=== PATIENT | female | born 1985 | race Caucasian/White ===

== ENCOUNTER 2017-12-29 07:43 | Emergency (ER) | payer BC, MEDICAID ==
[2017-12-29 08:04] VITALS: BP 124/73
--- NOTE | 2017-12-29 08:06 | EDM.PDOC ---
ED HPI GENERAL MEDICAL PROBLEM - General Chief Complaint: ENT Problem Stated Complaint: ear ache, dizziness Time Seen by Provider: 12/29/17 08:00 Source of Information: Reports: Patient, Old Records ([facility] chart/EMR) History Limitations: Reports: No Limitations - History of Present Illness INITIAL COMMENTS - FREE TEXT/NARRATIVE: The patient drove herself to the emergency room via private automobile for evaluation of increasing left outer ear canal pain with symptoms starting at about noon yesterday. She denies any history of injury, drainage, recent use of antipyretic medication, etc. She also had a sebaceous cyst with mild local infection about 1 week ago with some drainage at that time from her right upper chest, which has since resolved. No recent history of abdominal pain, heartburn , nausea, diarrhea, melena, gross hematochezia, or any food intolerance, including fatty foods, etc.. The patient also denies any recent cough, wheezing , dyspnea, etc.. Onset: Gradual Onset Date: 12/28/17 Onset Time: 12:00 Duration: Constant, Getting Worse Location: Reports: Face (Left EAC as above). Denies: Head, Neck, Chest, Radiates to Quality: Reports: Pressure, Sharp, Throbbing Severity: Moderate Improves with: Reports: None Worsens with: Reports: None Associated Symptoms: Reports: No Other Symptoms. 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 Denies: Allergic Rhinitis, Cataract, Glaucoma, Hard of Hearing, Otitis Media, Retinal Detachment Other HEENT History: Patient wears glasses. Skull fracture as below Cardiovascular History: Reports: Arrhythmia, Heart Murmur, Syncope, Other (See Below). Denies: Afib, Aneurysm, Blood Clots/VTE/DVT, CAD, High Cholesterol, Hypertension, LA, PVD Other Cardiovascular History: Mitral valve prolapse. PACs. Nonspecific syncopal episode on 04/08/04 secondary to postoperative anemia Respiratory History: Reports: Asthma. Denies: COPD, Intubation, Difficult, Intubation, Previous, PE, Pneumothorax Gastrointestinal History: Reports: GERD, Other (See Below). Denies: Celiac Disease, Cholelithiasis, Chronic Constipation, Chronic Diarrhea, Fecal Incontinence, Gastritis, GI Bleed, Hepatitis, Inflammatory Bowel Disease, Irritable Bowel Syndrome, Jaundice, Pancreatitis Other Gastrointestinal History: Nonspecific colitis by CT scan on 04/27/14 with no further workup Genitourinary History: Reports: STD, UTI, Recurrent, Other (See Below). 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 Elective SAB X 2 in first trimester ) LMP (Approximate): 2 Weeks (Current IUD) Musculoskeletal History: Reports: Arthritis, Back Pain, Chronic, Fracture, Neck Pain, Chronic, Osteoarthritis, Other (See Below) Other Musculoskeletal History: Right fifth metatarsal in 2010. Right ankle fracture affecting growth plate at about age 6. Skull fracture at age 3 on . Neurological History: Reports: Concussion, Head Trauma, Other (See Below). Denies: Brain Injury, Cerebral Aneurysms, CVA, Headaches, Chronic, Migraines, MS , Neuropathy, Diabetic, Neuropathy, Peripheral, Parkinson's, Seizure, TIA Other Neuro History: Skull fracture at age 3 as above Psychiatric History: Reports: Addiction, Anxiety, Depression, Psych Hospitalization(s), Other (See Below). Denies: Abuse, Victim of, ADD, ADHD, PTSD, Suicide Attempt, Suicidal Ideation Other Psychiatric History: Illicit drug use as below Endocrine/Metabolic History: Reports: None. Denies: Diabetes, Gestational, Diabetes, Type I, Diabetes, Type II, Diabetes Mellitus, Type 3c, Hypothyroidism , IDDM Hematologic History: Reports: Anemia, Other (See Below). Denies: Blood Transfusion(s), Iron Deficiency Other Hematologic History: Postoperative anemia as above with no previous blood transfusions Immunologic History: Reports: None. Denies: AIDS, HIV, SLE Oncologic (Cancer) History: Reports: Other (See Below). Denies: Basal Cell Carcinoma, Cervix, Colon, Hodgkin's Lymphoma, Leukemia, Lymphoma, Non-Hodgkin's Lymphoma, Squamous Cell Carcinoma Other Oncologic History: 2 previous histories of abnormal Pap smears however no evidence of malignancy Dermatologic History: Reports: Psoriasis, Other (See Below). Denies: Eczema Other Dermatologic History: recurrent sebaceous cysts - Infectious Disease History Infectious Disease History: Reports: Chicken Pox. Denies: C-Difficile, Measles , Meningitis, Mononucleosis, MRSA, Mumps, Pertussis (Whooping Cough), Rheumatic Fever, Rubella, Scarlet Fever, Shingles, VRE - Past Surgical History Head Surgeries/Procedures: Reports: None HEENT Surgical History: Reports: Adenoidectomy, Oral Surgery, Tonsillectomy, Other (See Below). Denies: Cataract Surgery, Eye Surgery, Laser Surgery, LASIK , Myringotomy w Tube(s), Naso-Sinus Surgery Other HEENT Surgeries/Procedures: Frenulum revision at age 13. [place] teeth extraction 4 at age 15. Tonsillectomy and adenoidectomy in 1993 Cardiovascular Surgical History: Reports: None. Denies: Varicose Respiratory Surgical History: Reports: None. Denies: Thoracentesis GI Surgical History: Denies: Appendectomy, Cholecystectomy, Colonoscopy, EGD, Hernia, Abdominal, Hernia, Inguinal, Hernia Repair/Other Female Surgical History: Reports: D&C, Dilitation & Evacuation, Other (See Below). Denies: Breast Biopsy, Hysterectomy, Oophorectomy, Salpingo- Oophorectomy, Tubal Ligation Other Female Surgeries/Procedures: Elective D&Cs 2 as above. History of excisions of recurrent Bartholincysts initially in March 2004 then April 2004 and then in 2004 Endocrine Surgical History: Reports: None. Denies: Thyroid Biopsy Neurological Surgical History: Reports: None. Denies: C-Spine, Laminectomy, Lumbar Spine, Sacral Spine, Thoracic Spine, Vertebroplasty Musculoskeletal Surgical History: Reports: Ganglion Cyst, Other (See Below). Denies: Arthroscopic Procedure, Carpal Tunnel, Joint Replacement, ORIF, Shoulder Surgery Other Musculoskeletal Surgeries/Procedures:: Right wrist ganglion cyst excision on 08/27/11 Oncologic Surgical History: Reports: None. Denies: Biopsy of Breast Dermatological Surgical History: Reports: None - Past Imaging History Past Imaging History: Reports: CAT Scan (CT scan of the abdomen and pelvis with contrast on 04/27/14), Ultrasound (OB ultrasounds) Social & Family History - Family History Cardiac: Reports: CAD, Hypertension, LA, Other (See Below) Other Cardiac Family History: Maternal grandmother and maternal uncle with MIs. Hypertension in maternal and paternal aunts Respiratory: Reports: COPD, Other (See Below) Other Respiratory Family Hisory: Paternal grandfather with COPD GI: Reports: PUD, Other (See Below) Other GI Family History: Peptic ulcer disease in father, paternal grandfather, and paternal uncle Musculoskeletal: Reports: Arthritis, Osteoarthritis, Other (See Below) Other Musculoskeletal Family History: Father and sister with osteoarthritis Neurological: Reports: CVA, Other (See Below) Other Neurological Family History: Paternal grandfather with CVA Endocrine/Metabolic: Reports: Diabetes, type II, Hypothyroidism, Other (See Below) Other Endocrine/Metabolic Family History: Paternal grandfather and paternal uncle with hypothyroidism. Paternal great-grandfather with AODM Hematologic: Reports: Anemia, Other (See Below) Other Hematologic Family History: Sister with anemia Oncologic: Reports: Breast, Other (See Below) Other Oncologic Family History: Paternal grandmother with breast cancer - Tobacco Use Smoking Status *Q: Current Every Day Smoker Tobacco Use Within Last Twelve Months: Cigarettes Years of Tobacco use: 17 Packs/Tins Daily: 1 (Started smoking at age 15 with maximum use of 2 packs per day) Used Tobacco, but Quit: No Smoking Cessation Information Provided To Patient: Yes Second Hand Smoke Exposure: No Second Hand Smoke Education Provided: No - Caffeine Use Caffeine Use: Reports: Energy Drinks (6 cans per day). Denies: Coffee, Soda, Tea - Alcohol Use Alcohol Use History: Yes Days Per Week of Alcohol Use: 0 (DWI in June 2016 with no previous alcohol abuse, treatment, etc.) Alcohol Use in Last Twelve Months: No - Recreational Drug Use Recreational Drug Use: Yes Drug Use in Last 12 Months: Yes Recreational Drug Type: Reports: Amphetamines (Speed) (Methamphetamine abuse for 1 year in 2016 with no current use or previous treatment required), Marijuana/Hashish (Started using at age 14 with daily use of 2 joints per day), Methamphetamine. 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 Denies: Fever, Chills, Malaise, Weakness , Fatigue, Night Sweats, Diaphoresis, Decreased Appetite, Weight Loss, Weight Gain HEENT: Reports: Ear Pain, Glasses. Denies: Dental Pain, Ear Discharge, Eye Discharge, Eye Pain, Hearing Loss, Nosebleed, Rhinitis, Throat Pain, Throat Swelling, Vertigo, Vision Change Respiratory: Reports: No Symptoms. Denies: Shortness of Breath, Wheezing, Pleuritic Chest Pain, Cough Cardiovascular: Reports: No Symptoms. Denies: Chest Pain, Blood Pressure Problem, Dyspnea on Exertion, Edema, Lightheadedness, Palpitations, Syncope Endocrine: Reports: No Symptoms. Denies: Fatigue GI/Abdominal: Reports: No Symptoms. Denies: Abdominal Pain, Anorexia, Black Stool, Bloody Stool, Constipation, Diarrhea, Decreased Appetite, Distension, Flatus, Hematochezia, Melena, Nausea, Stool Incontinence, Vomiting : Reports: No Symptoms. Denies: Discharge, Dysuria, Flank Pain, Hematuria, Incontinence, Irregular Menses, Urinary Retention Musculoskeletal: Reports: No Symptoms. Denies: Neck Pain, Shoulder Pain, Arm Pain, Back Pain, Leg Pain Skin: Reports: Wound (Healing right upper chest wall lesion as above.). Denies : Diaphoresis, Bruising, Erythema Neurological: Reports: No Symptoms. Denies: Confusion, Dizziness, Headache, Numbness, Paresthesia, Tingling, Weakness Psychiatric: Reports: Anxiety (Stable by history), Depression (Stable by history ). Denies: Agitation, Confusion, Hallucinations, Homicidal Ideation, Suicidal Ideation Hematologic/Lymphatic: Reports: No Symptoms Immunologic: Reports: No Symptoms ED EXAM, GENERAL - Physical Exam Exam: See Below Exam Limited By: No Limitations General Appearance: Alert, WD/WN, No Apparent Distress, Anxious (Mild) Eye Exam: Bilateral Eye: EOMI, Normal Inspection (No nystagmus. Patient wearing glasses), PERRL Ears: Normal External Exam, Hearing Grossly Normal, Normal TMs. No: Normal Canal (0.250.5 cm in diameter area of mild swelling and trace erythema without drainage or true abscess formation in the inferior aspect of the distal left EAC. No lymphangitis, mastoid tenderness, etc.) Nose: Normal Inspection, Normal Mucosa, No Blood Throat/Mouth: Normal Inspection, Normal Lips, Normal Teeth, Normal Gums, Normal Oropharynx, Normal Voice, No Airway Compromise. No: Dysphagia, Perioral Cyanosis Head: Atraumatic, Normocephalic. No: Facial Swelling, Facial Tenderness, Sinus Tenderness Neck: Normal Inspection, Supple, Non-Tender, Full Range of Motion. No: Lymphadenopathy (L), Lymphadenopathy (R), Thyromegaly Respiratory/Chest: No Respiratory Distress, Lungs Clear, Normal Breath Sounds, No Accessory Muscle Use, Chest Non-Tender, Other (1 cm area of well-healed and noninfected area of previous sebaceous cyst and cellulitis in the medial right upper chest region). No: Pleural Rub, Retractions Cardiovascular: Normal Peripheral Pulses, Regular Rate, Rhythm, No Edema, No Gallop, No JVD, No Murmur, No Rub. No: Gallop/S3, Gallop/S4, Friction Rub Peripheral Pulses: 2+: Radial (L), Radial (R) GI/Abdominal: Normal Bowel Sounds, Soft, Non-Tender, No Organomegaly, No Distention, No Abnormal Bruit, No Mass. No: Guarding (Female) Exam: Deferred Rectal (Female) Exam: Deferred Back Exam: Normal Inspection, Full Range of Motion. No: CVA Tenderness (L), CVA Tenderness (R), Muscle Spasm Extremities: Normal Inspection, Normal Range of Motion, Non-Tender, No Pedal Edema, Normal Capillary Refill. No: Janet's Sign Neurological: Alert, Oriented, CN II-XII Intact, Normal Cognition, Normal Gait, No Motor/Sensory Deficits Psychiatric: Anxious (Mild), Depressed Mood (Mild). No: Flat Affect, Tearful Skin Exam: Erythema (Left EAC as above). No: Diaphoretic, Ecchymosis, Lymphangitis, Wound/Incision Lymphatic: No Adenopathy Course - Vital Signs Last Recorded V/S: Last Vital Signs Temp 36.1 C 12/29/17 08:02 Pulse 54 L 12/29/17 08:02 Resp 18 12/29/17 08:02 BP 124/73 12/29/17 08:02 Pulse Ox 100 12/29/17 08:02 Vital Signs - 24 hr 12/29/17 12/29/17 07:50 08:02 Temperature [ 36.1 C 36.1 C Oral] Pulse, 101 H 54 L Peripheral [ Right Pulse Oximetry] Respiratory 18 18 Rate Blood Pressure 138/89 124/73 [Right Upper Arm] O2 Sat by Pulse 100 100 Oximetry - Orders/Labs/Meds Orders: Active Orders 24 hr Category Date Time Status Obtain Past Medical Record [OM.PC] Routine Oth 12/29/17 08:06 Active Labs: None Meds: Medications Discontinued Medications Generic Name Dose Route Start Last Admin Trade Name Nicole PRN Reason Stop Dose Admin Ceftriaxone Sodium 1 gm 12/29/17 08:07 12/29/17 08:22 Rocephin IM 12/29/17 08:08 1 gm ONETIME ONE Administration Ketorolac Tromethamine 60 mg 12/29/17 08:07 12/29/17 08:22 Toradol IM 12/29/17 08:08 60 mg ONETIME ONE Administration Lidocaine HCl 5 ml 12/29/17 08:08 12/29/17 08:22 Xylocaine-Mpf 1% INJECT 12/29/17 08:09 5 ml ONETIME ONE Administration - Radiology Interpretation Free Text/Narrative:: None Departure - Departure Time of Disposition: 09:15 Disposition: Home, Self-Care 01 Condition: Good Clinical Impression: Tobacco abuse counseling, Illicit drug use, continuous, Mixed anxiety depressive disorder Cellulitis Qualifiers: Site of cellulitis: other site Qualified Code(s): L03.818 - Cellulitis of other sites Asthma Qualifiers: Asthma severity: mild Asthma persistence: intermittent Asthma complication type : uncomplicated Qualified Code(s): J45.20 - Mild intermittent asthma, uncomplicated - Discharge Information Prescriptions: Ciprofloxacin HCl [Cipro] 500 mg PO BID #20 tablet Sulfamethoxazole/Trimethoprim [Bactrim Ds Tablet] 1 each PO BIDMEALS #20 tablet Instructions: Ketorolac injection, Ceftriaxone injection, Cellulitis, Adult, [id number] Referrals: PCP,None [Primary Care Provider] - Forms: ED Department Discharge, ED Return to Work/School Form Additional Instructions: 1. Follow up with your regular provider in 10-14 days as needed, if symptoms persist. 2. Tylenol 650 mg by mouth every 4 hours and/or OTC ibuprofen 2-3 tabs by mouth every 6 hours with food as directed./needed. Next dose of ibuprofen in 6 hours as needed secondary to medications given in the emergency room 3. May use rubbing alcohol to the ear canal as discussed 4 times a day 4. Work excuse- See Form 5. Stop all tobacco and marijuana use SANCHEZ as directed/per provided information and consider contacting [facility], etc.. 6. Stop all l energy drink use SANCHEZ and decrease caffeine intake as discussed 7. Further discuss with your regular provider your current stressors with possible reinitiation of previous medications for your anxiety and depression - Problem List & Annotations (1) Cellulitis SNOMED Code(s): 426604833 Code(s): L03.90 - CELLULITIS, UNSPECIFIED Status: Acute Priority: High Current Visit: Yes Onset Date: 12/29/17 Annotation/Comment:: Wound care, etc. discussed. Work excuse provided. She has tolerated the IM Rocephin well in the past by her history. Aggressive outpatient therapy with Cipro and Bactrim DS with close follow-up by her regular provider depending on her clinical course Qualifiers: Site of cellulitis: other site Qualified Code(s): L03.818 - Cellulitis of other sites (2) Asthma SNOMED Code(s): 399153943 Code(s): J45.909 - UNSPECIFIED ASTHMA, UNCOMPLICATED Status: Chronic Priority: Medium Current Visit: Yes Annotation/Comment:: Stable by history with no recent history of fever, bronchitic type symptoms, etc. with medications not needed for quite some time Qualifiers: Asthma severity: mild Asthma persistence: intermittent Asthma complication type: uncomplicated Qualified Code(s): J45.20 - Mild intermittent asthma, uncomplicated (3) Illicit drug use, continuous SNOMED Code(s): 638655927 Code(s): F19.90 - OTHER PSYCHOACTIVE SUBSTANCE USE, UNSPECIFIED, UNCOMPLICATED Status: Chronic Priority: Medium Current Visit: Yes Annotation/Comment:: Discontinue marijuana use SANCHEZ secondary to previous history of illicit drug abuse, including methamphetamine's, etc. and also in light of her current anxiety depression disorder. She was also cautioned to stop energy drinks SANCHEZ (4) Mixed anxiety depressive disorder SNOMED Code(s): 232101799 Code(s): F41.8 - OTHER SPECIFIED ANXIETY DISORDERS Status: Chronic Priority: Medium Current Visit: Yes Annotation/Comment:: She did stop her medications on her own quite some time ago. She is consider reinitiation of these medications through her regular provider. Emotional support was provided (5) Tobacco abuse counseling SNOMED Code(s): 605536980, 309117211 Code(s): Z71.6 - TOBACCO ABUSE COUNSELING Status: Chronic Priority: Medium Current Visit: Yes Annotation/Comment:: Tobacco cessation strongly encouraged with information provided prior to discharge - Problem List Review Problem List Initiated/Reviewed/Updated: Yes - My Orders Last 24 Hours: My Active Orders 12/29/17 08:06 Obtain Past Medical Record [OM.PC] Routine - Assessment/Plan Last 24 Hours: My Active Orders 12/29/17 08:06 Obtain Past Medical Record [OM.PC] Routine Assessment:: As above Plan: As above. Extensive precautions were given to the patient, who is in agreement with the treatment plan. See Patient Instructions for further treatment and plan.
[2017-12-29] MEDS ORDERED: cefTRIAXone 1 GM Vial IM ONE (08:07)
[2017-12-29] MEDS ORDERED: Ketorolac 60 MG/2 ML SDV IM ONE (08:07)
== END 2017-12-29 09:15 | disposition home or self-care (01) ==
LOC: LL.ED 07:43
DX: L03.313 Cellulitis of chest wall (principal); H92.02 Otalgia, left ear; J45.20 Mild intermittent asthma, uncomplicated; F41.8 Other specified anxiety disorders; F19.90 Other psychoactive substance use, unspecified, uncomplicated; F17.210 Nicotine dependence, cigarettes, uncomplicated; Z71.6 Tobacco abuse counseling; Z88.0 Allergy status to penicillin
CPT/HCPCS: 96372; 99283; J0696; J1885